=== PATIENT | male | born 1955 | race Caucasian/White ===

== ENCOUNTER 2016-06-03 18:00 | Inpatient (IN) | payer BC ==
[~2016-06-03] VITALS: Ht 152.4 cm; Wt 86.6 kg
[2016-06-03] MEDS ORDERED: TYLENOL W/COD1 UDTAB PO (18:33)
[2016-06-03] MEDS ORDERED: NAPROSYN500 MG PO (18:33)
[2016-06-03] MEDS ORDERED: BYSTOLIC5 MG PO (18:33)
[2016-06-03 19:06] LABS: PROTHROMBIN TIME 11.2 SECONDS (9.7-12.8)
[2016-06-03 19:09] LABS: CALCIUM 9.3 mg/dL (8.4-10.2); CREATININE, serum 0.87 mg/dL (0.66-1.25); POTASSIUM 4.2 mmol/L (3.4-5.0)
[2016-06-03 19:16] LABS: BASO % 0.4 % (0.0-2.0); EOS # 0.4 (0.0-0.7); EOS % 3.3 % (0-4.0); GRAN # 6.8 (1.4-6.5); GRAN % 64.1 % (42.2-75.2); HEMATOCRIT 39.7 % (42.0-52.0); HEMOGLOBIN 13.1 g/dl (13.5-18.0); LYMPH # 2.3 (1.2-3.4); LYMPH % 21.7 % (20.0-51.0); MEAN CELL VOLUME 83 fl (80.0-100.0); MEAN CORPUSCULAR HEMOGLOBIN 27 pg (27.0-31.0); MEAN CORPUSCULAR HGB CONC 33 g/dl (33.0-37.0); MEAN PLATELET VOLUME 9.3 fl (7.4-10.4); MONO # 1.1 (0.1-0.6); MONO % 9.8 % (1.7-9.3); PLATELET COUNT 432 K/mm3 (130-400); REDCELL DISTRIBUTION WIDTH-CV 13.2 % (11.5-14.5); WHITE BLOOD COUNT 10.7 K/mm3 (4.8-10.8)
[2016-06-03 19:55] VITALS: BP 161/83; PULSE 71; TEMP 98.5
[2016-06-03] MEDS ORDERED: ASPIRIN 81M81 MG/TA2 PO (19:55)
[2016-06-03 22:02] VITALS: BP 137/83; PULSE 75; TEMP 97.8
[2016-06-04 00:06] VITALS: BP 137/71; PULSE 85; TEMP 98.2
[2016-06-04 04:16] VITALS: BP 151/85; PULSE 97; TEMP 98.2
[2016-06-04 07:45] LABS: BASO % 0.3 % (0.0-2.0); EOS # 0.3 (0.0-0.7); EOS % 3.2 % (0-4.0); HEMATOCRIT 37.5 % (42.0-52.0); LYMPH # 1.7 (1.2-3.4); LYMPH % 18.1 % (20.0-51.0); MEAN CELL VOLUME 83 fl (80.0-100.0); MEAN CORPUSCULAR HEMOGLOBIN 27 pg (27.0-31.0); MEAN CORPUSCULAR HGB CONC 32 g/dl (33.0-37.0); MEAN PLATELET VOLUME 9.3 fl (7.4-10.4); MONO % 11.4 % (1.7-9.3); PLATELET COUNT 359 K/mm3 (130-400); REDCELL DISTRIBUTION WIDTH-CV 13.5 % (11.5-14.5); WHITE BLOOD COUNT 9.1 K/mm3 (4.8-10.8)
[2016-06-04 09:40] VITALS: BP 148/83; PULSE 57; TEMP 98
[2016-06-04 13:53] VITALS: BP 146/82; PULSE 59; TEMP 97.9
[2016-06-04 18:00] VITALS: BP 140/87; PULSE 58; TEMP 98
[2016-06-04 20:07] VITALS: BP 141/86; PULSE 98; TEMP 97.5
[2016-06-05] VITALS (21 sets, daily range): BP systolic 108–138; BP diastolic 37–91; PULSE 73–101; TEMP 97.3–99.3
[2016-06-05 13:12] LABS: BASO # 0.1 (0.0-0.2); BASO % 0.4 % (0.0-2.0); EOS # 0.1 (0.0-0.7); EOS % 0.7 % (0-4.0); GRAN # 14.5 (1.4-6.5); HEMATOCRIT 37.3 % (42.0-52.0); LYMPH # 0.8 (1.2-3.4); MEAN CELL VOLUME 84 fl (80.0-100.0); MEAN CORPUSCULAR HEMOGLOBIN 27 pg (27.0-31.0); MEAN CORPUSCULAR HGB CONC 32 g/dl (33.0-37.0); MEAN PLATELET VOLUME 9.2 fl (7.4-10.4); MONO # 0.9 (0.1-0.6); MONO % 5.2 % (1.7-9.3); PLATELET COUNT 314 K/mm3 (130-400); RED BLOOD COUNT 4.42 M/mm3 (4.20-5.60); REDCELL DISTRIBUTION WIDTH-CV 13.3 % (11.5-14.5); WHITE BLOOD COUNT 16.5 K/mm3 (4.8-10.8)
[2016-06-05 13:23] LABS: HEMOGLOBIN 11.9 g/dl (13.5-18.0)
[2016-06-06 01:58] VITALS: BP 133/76; PULSE 78; TEMP 98.3
[2016-06-06 05:48] VITALS: BP 128/76; PULSE 65; TEMP 98.2
[2016-06-06 07:31] LABS: MEAN CELL VOLUME 83 fl (80.0-100.0); MEAN CORPUSCULAR HGB CONC 33 g/dl (33.0-37.0); MEAN PLATELET VOLUME 9.5 fl (7.4-10.4); PLATELET COUNT 366 K/mm3 (130-400); RED BLOOD COUNT 4.25 M/mm3 (4.20-5.60); REDCELL DISTRIBUTION WIDTH-CV 13.3 % (11.5-14.5); WHITE BLOOD COUNT 13.6 K/mm3 (4.8-10.8)
[2016-06-06 07:32] LABS: HEMATOCRIT 35.2 % (42.0-52.0); HEMOGLOBIN 11.5 g/dl (13.5-18.0); MEAN CORPUSCULAR HEMOGLOBIN 27 pg (27.0-31.0)
[2016-06-06 07:41] LABS: ADD PATHOLOGY DIFF REVIEW NO
[2016-06-06 08:22] LABS: BAND 8 % (0-10); NEUTROPHILS 70 % (42.0-75.2); TOTAL CELLS COUNTED 100
[2016-06-06 10:04] VITALS: BP 126/69; PULSE 78; TEMP 98.1
[2016-06-06 14:00] VITALS: BP 119/65; PULSE 70; TEMP 98.4
[2016-06-06 18:00] VITALS: BP 136/83; PULSE 76; TEMP 98.6
[2016-06-06 21:59] VITALS: BP 133/74; PULSE 78; TEMP 98.2
[2016-06-07 01:48] VITALS: BP 134/73; PULSE 73; TEMP 98.5
[2016-06-07 06:31] VITALS: BP 136/74; PULSE 74; TEMP 98.5
[2016-06-07 06:45] LABS: HEMATOCRIT 32.3 % (42.0-52.0); HEMOGLOBIN 10.6 g/dl (13.5-18.0)
[2016-06-07 09:22] VITALS: BP 133/67; PULSE 87; TEMP 98.1
[2016-06-07 13:30] VITALS: BP 113/79; PULSE 69; TEMP 98.1
== END 2016-06-07 17:30 | disposition home or self-care (01) | DRG 467 ==
LOC: COL.ER 18:00 → SURG 19:17
PROVIDERS: Emergency Medicine; Orthopaedic Surgery; Orthopaedic Surgery Sports Medicine
PROC: 0SPS0JZ Removal of Synthetic Substitute from Left Hip Joint, Femoral Surface, Open Approach (ICD-10-PCS; 2016-06-05)
PROC: 0SRS0JA Replacement of Left Hip Joint, Femoral Surface with Synthetic Substitute, Uncemented, Open Approach (ICD-10-PCS; principal; 2016-06-05 10:00)
DX: S72.002A Fracture of unspecified part of neck of left femur, initial encounter for closed fracture (principal); M97.02XA Periprosthetic fracture around internal prosthetic left hip joint, initial encounter; I10 Essential (primary) hypertension; R20.8 Other disturbances of skin sensation; W18.09XA Striking against other object with subsequent fall, initial encounter
CPT/HCPCS: A9284; C1776; J0690; J1100; J1170; J2250; J2270; J2405; J2704; J3010; J7030; J7120